=== PATIENT | female | born 1975 | race Caucasian/White ===

== ENCOUNTER 2016-06-10 17:58 | Emergency (ER) | payer BC, OTHER ==
[~2016-06-10] VITALS: Wt 81.6 kg
[~2016-06-10 17:58] MED LIST: ALBUTEROL 3 ML 33 ML INH; AMBIEN10 M1 PO; AMOXICILLIN500 M3 PO; AMOXICILLIN500 MG PO; ANAPROX DS550 MG PO; ASPIRIN325 MG; ATROVENT I0.5 MG/2.1 INH; BACTRIM DS 8001 TA1 PO; CELEXA20 MG PO; CLARITIN10 MG PO; COMBIVENT1 ARO IH; COMPAZINE10 MG PO; DAYPRO600 M1 PO; DONNATAL1 TAB PO; DOXYCYCLINE100 MG PO; FLEXERIL10 MG PO; FLEXERIL5 MG PO; HYDROCODONE BIT1 T11 PO; KEFLEX500 MG PO; LISINOPRIL10 MG PO; LISINOPRIL5 MG PO; MACROBID100 M1 PO; MEDROL DOSEPAK4 MG PO; MIDRIN (DURADR1 CAP PO; MOTRIN400 MG; MOTRIN800 MG PO; NAPROSYN250 MG PO; NAPROSYN500 MG PO; NEBULIZER; NKHM; NORCO 325 MG-51 TAB PO; PARAFON FORTE500 MG PO; PHENERGAN W/ DE30 ML PO; PHENERGAN25 M1 PO; POTASSIUM GLUC550 M1 PO; PREDNICOT10 MG PO; PREDNISONE10 MG PO; PROAIR HFA0.09 MG/AC INH; PROVENTIL0.09 MG/A1 INH; PROVENTIL0.09 MG/AC IH; PYRIDIUM200 MG PO; QVAR0.08 MG/AC INH; ROBAXIN750 MG PO; ROBITUSSIN AC 10 MG/ PO; ROBITUSSIN AC 110 ML PO; SIMVASTATIN5 MG PO; TESSALON PERLE100 M1 PO; TESSALON PERLE200 MG PO; TORADOL10 MG PO; TRAMADOL HCL50 MG PO; TRAZADONE HYDR100 MG PO; TRAZODONE50 MG PO; ULTRAM50 MG PO; VICODIN 5/500 505 MG PO; VICODIN 500 MG-1 TAB PO; VOLTAREN50 M1 PO; ZANTAC150 MG PO; ZITHROMAX Z PA250 MG PO; ZITHROMAX250 MG PO; ZOFRAN ODT4 MG SL; ZOFRAN4 MG PO; ZYRTEC10 MG PO
[2016-06-10 19:03] VITALS: BP 163/97
[2016-06-10] MEDS ORDERED: Motrin,Rufen800 MG PO (20:02)
== END 2016-06-10 20:27 | disposition home or self-care (01) ==
LOC: ED 17:58
DX: M79.671 Pain in right foot (principal); F17.200 Nicotine dependence, unspecified, uncomplicated; E78.5 Hyperlipidemia, unspecified; I10 Essential (primary) hypertension; J44.9 Chronic obstructive pulmonary disease, unspecified; G47.00 Insomnia, unspecified; Z90.710 Acquired absence of both cervix and uterus; Z90.49 Acquired absence of other specified parts of digestive tract; Z88.6 Allergy status to analgesic agent; Z88.5 Allergy status to narcotic agent; Z98.890 Other specified postprocedural states

== ENCOUNTER 2016-06-15 22:26 | Emergency (ER) | payer BC, OTHER ==
[~2016-06-15] VITALS: Ht 165.1 cm
[~2016-06-15 22:26] MED LIST changes: +Motrin,Rufen800 MG PO
[2016-06-15 22:41] VITALS: BP 153/111
[2016-06-15] MEDS ORDERED: NAPROSYN500 MG PO (22:46)
[2016-06-15] MEDS ORDERED: AMOXICILLIN500 M2 PO (22:46)
== END 2016-06-15 22:49 | disposition home or self-care (01) ==
LOC: ED 22:26
DX: H66.92 Otitis media, unspecified, left ear (principal); F17.200 Nicotine dependence, unspecified, uncomplicated; Z90.49 Acquired absence of other specified parts of digestive tract; Z98.890 Other specified postprocedural states; Z90.710 Acquired absence of both cervix and uterus; Z88.6 Allergy status to analgesic agent; Z88.5 Allergy status to narcotic agent

== ENCOUNTER 2016-07-07 17:17 | Emergency (ER) | payer BC, OTHER ==
[~2016-07-07 17:17] MED LIST changes: +AMOXICILLIN500 M2 PO
[2016-07-07 17:24] VITALS: BP 154/100
== END 2016-07-07 18:58 | disposition home or self-care (01) ==
LOC: ED 17:17
DX: S60.221A Contusion of right hand, initial encounter (principal); F17.200 Nicotine dependence, unspecified, uncomplicated; Z90.49 Acquired absence of other specified parts of digestive tract; Z98.890 Other specified postprocedural states; Z90.710 Acquired absence of both cervix and uterus; Z88.5 Allergy status to narcotic agent; Z88.6 Allergy status to analgesic agent; X58.XXXA Exposure to other specified factors, initial encounter; Y93.89 Activity, other specified; Y92.89 Other specified places as the place of occurrence of the external cause; Y99.9 Unspecified external cause status

== ENCOUNTER 2017-02-17 09:39 | Emergency (ER) | payer BC ==
[~2017-02-17] VITALS: Ht 165.1 cm; Wt 88.5 kg
[2017-02-17 11:05] VITALS: BP 188/90
[2017-02-17] MEDS ORDERED: CYCLOBENZAPRINE5 M3 PO (13:41)
[2017-02-17] MEDS ORDERED: Motrin,Rufen800 MG PO (13:41)
[2017-02-17] MEDS ORDERED: MEDROL DOSEPAK4 MG PO (13:41)
== END 2017-02-17 14:21 | disposition home or self-care (01) ==
LOC: ED 09:39
DX: M54.5 Low back pain (principal); F17.200 Nicotine dependence, unspecified, uncomplicated; Z90.49 Acquired absence of other specified parts of digestive tract; Z90.710 Acquired absence of both cervix and uterus; Z98.890 Other specified postprocedural states; X50.9XXA Other and unspecified overexertion or strenuous movements or postures, initial encounter; Y93.89 Activity, other specified; Y92.69 Other specified industrial and construction area as the place of occurrence of the external cause; Y99.9 Unspecified external cause status

== ENCOUNTER 2017-05-30 20:20 | Emergency (ER) | payer OTHER, BC ==
[~2017-05-30] VITALS: Ht 165.1 cm; Wt 90.7 kg
[~2017-05-30 20:20] MED LIST changes: +CYCLOBENZAPRINE5 M3 PO
[2017-05-30 20:51] VITALS: BP 163/89
[2017-05-30] MEDS ORDERED: REQUIP0.5 MG PO (20:53)
[2017-05-30] MEDS ORDERED: NAPROSYN500 MG PO (21:16)
== END 2017-05-30 21:12 | disposition home or self-care (01) ==
LOC: ED 20:20
DX: M25.511 Pain in right shoulder (principal); F17.200 Nicotine dependence, unspecified, uncomplicated; J44.9 Chronic obstructive pulmonary disease, unspecified; E78.5 Hyperlipidemia, unspecified; I10 Essential (primary) hypertension; Z90.49 Acquired absence of other specified parts of digestive tract; Z98.890 Other specified postprocedural states; Z90.710 Acquired absence of both cervix and uterus; X50.1XXA Overexertion from prolonged static or awkward postures, initial encounter; Y93.89 Activity, other specified; Y92.69 Other specified industrial and construction area as the place of occurrence of the external cause; Y99.9 Unspecified external cause status

== ENCOUNTER 2017-08-22 17:26 | Emergency (ER) | payer OTHER ==
[~2017-08-22] VITALS: Ht 165.1 cm; Wt 95.3 kg
[~2017-08-22 17:26] MED LIST changes: +REQUIP0.5 MG PO
[2017-08-22 17:34] VITALS: BP 149/87
== END 2017-08-22 19:10 | disposition home or self-care (01) ==
LOC: ED 17:26
DX: G43.909 Migraine, unspecified, not intractable, without status migrainosus (principal); J44.9 Chronic obstructive pulmonary disease, unspecified; I10 Essential (primary) hypertension; E78.5 Hyperlipidemia, unspecified; F17.200 Nicotine dependence, unspecified, uncomplicated

== ENCOUNTER 2017-08-25 20:06 | Emergency (ER) | payer OTHER ==
[~2017-08-25] VITALS: Ht 165.1 cm; Wt 95.3 kg
[2017-08-25] MEDS ORDERED: CARTIA XT240 MG PO (20:10)
[2017-08-25] MEDS ORDERED: ATORVASTATIN CA10 M1 PO (20:11)
[2017-08-25] MEDS ORDERED: CITALOPRAM HYDR20 MG PO (20:11)
[2017-08-25] MEDS ORDERED: RIZATRIPTAN10 MG PO (20:11)
[2017-08-25 21:46] VITALS: BP 154/86
== END 2017-08-25 21:45 | disposition home or self-care (01) ==
LOC: ED 20:06
DX: R51 Headache (principal); F17.200 Nicotine dependence, unspecified, uncomplicated; J44.9 Chronic obstructive pulmonary disease, unspecified; E78.5 Hyperlipidemia, unspecified; I10 Essential (primary) hypertension; Z79.899 Other long term (current) drug therapy; Z90.710 Acquired absence of both cervix and uterus; Z90.49 Acquired absence of other specified parts of digestive tract

== ENCOUNTER 2017-09-19 17:53 | Emergency (ER) | payer OTHER ==
[~2017-09-19] VITALS: Ht 167.6 cm; Wt 77.1 kg
[~2017-09-19 17:53] MED LIST changes: +ATORVASTATIN CA10 M1 PO; +CARTIA XT240 MG PO; +CITALOPRAM HYDR20 MG PO; +RIZATRIPTAN10 MG PO
[2017-09-19 17:58] VITALS: BP 134/75
[2017-09-19] MEDS ORDERED: NAPROSYN500 MG PO (17:59)
[2017-09-19] MEDS ORDERED: CHLORZOXAZONE500 M2 PO (17:59)
== END 2017-09-19 18:11 | disposition home or self-care (01) ==
LOC: ED 17:53
DX: M54.42 Lumbago with sciatica, left side (principal); F17.200 Nicotine dependence, unspecified, uncomplicated; J44.9 Chronic obstructive pulmonary disease, unspecified; E78.5 Hyperlipidemia, unspecified; I10 Essential (primary) hypertension; G43.909 Migraine, unspecified, not intractable, without status migrainosus; Z90.710 Acquired absence of both cervix and uterus; Z98.890 Other specified postprocedural states; Z90.49 Acquired absence of other specified parts of digestive tract; Z79.899 Other long term (current) drug therapy; X50.1XXA Overexertion from prolonged static or awkward postures, initial encounter; Y93.89 Activity, other specified; Y92.89 Other specified places as the place of occurrence of the external cause; Y99.9 Unspecified external cause status

== ENCOUNTER → 2017-09-28 | Outpatient (CLI) | payer OTHER ==
[~2017-09-28] MED LIST changes: +CHLORZOXAZONE500 M2 PO
[2017-09-30 17:06] LABS: RUBEOLA AB IGG 096560 46.6 AU/mL (Immune >29.9)
== END | disposition home or self-care (01) ==
LOC: LAB 13:01
PROVIDERS: Family Medicine
DX: Z02.0 Encounter for examination for admission to educational institution (principal)

== ENCOUNTER → 2017-09-30 | Outpatient (CLI) | payer OTHER | END | disposition home or self-care (01) | LOC: RAD 14:28 | DX: Z02.0 Encounter for examination for admission to educational institution (principal); J44.1 Chronic obstructive pulmonary disease with (acute) exacerbation; I10 Essential (primary) hypertension; F17.200 Nicotine dependence, unspecified, uncomplicated ==

== ENCOUNTER 2018-03-15 18:48 | Emergency (ER) | payer OTHER ==
[~2018-03-15] VITALS: Ht 152.4 cm; Wt 86.2 kg
[~2018-03-15 18:48] MED LIST changes: +DELTASONE20 M1 PO; +DULERA 200 MCG8.8 GM INH; +LOSARTAN POTASS50 M1 PO
[2018-03-15 18:53] VITALS: BP 156/87
[2018-03-15] MEDS ORDERED: PRINIVIL20 M1 PO (18:53)
== END 2018-03-15 21:04 | disposition hospice, home (50) ==
LOC: ED 18:48
DX: S91.111A Laceration without foreign body of right great toe without damage to nail, initial encounter (principal); S90.31XA Contusion of right foot, initial encounter; Z79.899 Other long term (current) drug therapy; W18.49XA Other slipping, tripping and stumbling without falling, initial encounter; Y93.01 Activity, walking, marching and hiking; Y92.89 Other specified places as the place of occurrence of the external cause; Y99.8 Other external cause status

== ENCOUNTER 2018-05-06 15:18 | Emergency (ER) | payer OTHER ==
[~2018-05-06] VITALS: Wt 93.0 kg
[~2018-05-06 15:18] MED LIST changes: +PRINIVIL20 M1 PO
[2018-05-06 15:19] VITALS: BP 154/83
[2018-05-06 15:38] LABS: BILIRUBIN NEGATIVE (NEGATIVE); BLOOD NEGATIVE (NEGATIVE); CLARITY CLEAR (CLEAR); COLOR YELLOW (YELLOW); GLUCOSE NEGATIVE (NEGATIVE); KETONE NEGATIVE (NEGATIVE); LEUKO ESTERASE NEGATIVE (NEGATIVE); NITRITE NEGATIVE (NEGATIVE); UROBILINOGEN 0.2 E.U./dl (0.2-1.0)
[2018-05-06 15:45] LABS: BACTERIA 1+; MUCOUS 1+
[2018-05-06 17:33] LABS: BASO % 0.5 % (0.0-1.0); EOS # 0.1 10*3/uL (0.0-0.4); EOS % 0.9 % (1.0-4.0); HEMATOCRIT 40.1 % (37.0-47.0); HEMOGLOBIN 13.5 g/dl (12.0-16.0); LYMPH # 3.1 10*3/uL (1.3-4.4); LYMPH % 35.7 % (27.0-41.0); MEAN CELL VOLUME 89.3 fl (81.0-99.0); MEAN CORPUSCULAR HGB 30.1 pg (27.0-31.0); MEAN CORPUSCULAR HGB CONC 33.7 g/dl (33.0-37.0); MEAN PLATELET VOLUME 10.9 fl (9.6-12.3); MONO # 0.6 10*3/uL (0.1-1.0); MONO % 7.1 % (3.0-9.0); NEUT # 4.8 10*3/uL (2.3-7.9); NEUT % 55.5 % (47.0-73.0); PLATELET COUNT AUTOMATED 281 10*3/uL (130-400); RED BLOOD COUNT 4.49 10*6/uL (4.10-5.10); RED CELL DISTRI WIDTH 12.5 % (0-14.5); WHITE BLOOD COUNT 8.6 10*3/uL (4.8-10.8)
[2018-05-06 17:49] LABS: LIPASE 113 U/L (73-393)
[2018-05-06 17:53] LABS: ALBUMIN 3.7 gm/dl (3.1-4.5); ALKALINE PHOSPHATASE 118 U/L (45-117); BUN 7 mg/dl (7-24); CHLORIDE 109 mmol/L (98-107); CREATININE 0.61 mg/dL (0.55-1.02); POTASSIUM 3.4 mmol/L (3.5-5.1); SGOT/AST 11 IU/L (3-35); SGPT/ALT 26 U/L (12-78); SODIUM 141 mmol/L (136-145); TOTAL PROTEIN 7.1 gm/dL (6.4-8.2)
[2018-05-06] MEDS ORDERED: CEPHALEXIN500 M1 PO (18:19)
== END 2018-05-06 18:55 | disposition home or self-care (01) ==
LOC: ED 15:18
PROVIDERS: Internal Medicine; Nurse Practitioner
DX: R10.9 Unspecified abdominal pain (principal); R11.0 Nausea; F17.200 Nicotine dependence, unspecified, uncomplicated; Z79.899 Other long term (current) drug therapy; Z90.710 Acquired absence of both cervix and uterus; Z90.49 Acquired absence of other specified parts of digestive tract

== ENCOUNTER 2018-12-17 00:03 | Emergency (ER) | payer OTHER ==
[~2018-12-17] VITALS: Ht 162.5 cm; Wt 104.3 kg
[~2018-12-17 00:03] MED LIST changes: +CEPHALEXIN500 M1 PO; +FLONASE ALLERG9.9 ML NAS
[2018-12-17 00:09] VITALS: BP 165/80
[2018-12-17] MEDS ORDERED: OMNICEF300 MG PO (02:07)
== END 2018-12-17 02:23 | disposition home or self-care (01) ==
LOC: ED 00:03
DX: J32.0 Chronic maxillary sinusitis (principal); H66.93 Otitis media, unspecified, bilateral; G43.909 Migraine, unspecified, not intractable, without status migrainosus; I10 Essential (primary) hypertension; E78.5 Hyperlipidemia, unspecified; F17.200 Nicotine dependence, unspecified, uncomplicated; Z79.899 Other long term (current) drug therapy

== ENCOUNTER 2019-02-02 13:45 | Emergency (ER) | payer OTHER ==
[~2019-02-02] VITALS: Ht 165.1 cm; Wt 90.7 kg
[~2019-02-02 13:45] MED LIST changes: +OMNICEF300 MG PO
[2019-02-02 13:47] VITALS: BP 147/87
[2019-02-02] MEDS ORDERED: ROBAXIN-750750 MG PO (15:21)
== END 2019-02-02 15:39 | disposition home or self-care (01) ==
LOC: ED 13:45
DX: S16.1XXA Strain of muscle, fascia and tendon at neck level, initial encounter (principal); J44.9 Chronic obstructive pulmonary disease, unspecified; E78.5 Hyperlipidemia, unspecified; I10 Essential (primary) hypertension; G43.909 Migraine, unspecified, not intractable, without status migrainosus; F17.200 Nicotine dependence, unspecified, uncomplicated; Z79.2 Long term (current) use of antibiotics; Z79.899 Other long term (current) drug therapy; Z90.710 Acquired absence of both cervix and uterus; Z90.49 Acquired absence of other specified parts of digestive tract; X58.XXXA Exposure to other specified factors, initial encounter; Y93.89 Activity, other specified; Y92.89 Other specified places as the place of occurrence of the external cause; Y99.8 Other external cause status

== ENCOUNTER 2019-11-15 22:41 | Emergency (ER) | payer OTHER ==
[~2019-11-15 22:41] MED LIST changes: +ROBAXIN-750750 MG PO
[2019-11-15 22:45] VITALS: BP 173/86
[2019-11-15] MEDS ORDERED: TRAMADOL HCL50 MG PO (23:09)
[2019-11-15] MEDS ORDERED: CYCLOBENZAPRINE10 MG PO (23:09)
[2019-11-15] MEDS ORDERED: MEDROL DOSEPAK4 MG PO (23:09)
== END 2019-11-15 23:24 | disposition home or self-care (01) ==
LOC: ED 22:41
DX: M54.31 Sciatica, right side (principal); I10 Essential (primary) hypertension; G43.909 Migraine, unspecified, not intractable, without status migrainosus; Z79.899 Other long term (current) drug therapy; J45.909 Unspecified asthma, uncomplicated; Z90.49 Acquired absence of other specified parts of digestive tract; Z90.710 Acquired absence of both cervix and uterus